=== PATIENT | female | born 1990 | race Hispanic/Latino ===

== ENCOUNTER 2018-06-21 21:02 | Emergency (ER) | payer MEDICAID ==
[2018-06-21 22:03] LABS: BASOPHILS % (AUTO) 0.1 % (0.0-5.0); EOSINOPHILS % (AUTO) 0.6 % (0.0-8.0); HEMATOCRIT 32.8 % (36-48); LYMPHOCYTES % (AUTO) 28.6 % (21.0-51.0); MEAN CORPUSCULAR HEMOGLOBIN 23.7 pg (27.0-33.0); MEAN CORPUSCULAR HGB CONC 32.2 g/dL (32.0-36.0); MEAN CORPUSCULAR VOLUME 73.7 fL (79-99); MONOCYTES % (AUTO) 4.9 % (3.0-13.0); NEUTROPHILS % (AUTO) 65.8 % (40.0-77.0); PLATELET COUNT (AUTO) 286 K/uL (130-400); RED BLOOD CELL COUNT(AUTO) 4.44 MIL/uL (4.00-5.50); RED CELL DISTRIBUTION WIDTH 18.6 % (11.0-15.5); WHITE BLOOD COUNT (AUTO) 10.7 K/uL (4.8-10.8)
[2018-06-21 22:04] LABS: APPEARANCE,URINE Cloudy (CLEAR); BILIRUBIN,URINE Negative (NEGATIVE); COLOR,URINE Dark Yellow (YELLOW); GLUCOSE, URINE (UA) Negative (NEGATIVE); KETONES,URINE Trace mg/dL (NEGATIVE); LEUKOCYTE ESTERASE ,URINE Trace (NEGATIVE); NITRATE,URINE Negative (NEGATIVE); OCCULT BLOOD,URINE Large (NEGATIVE); PH,URINE 5.5 (5.0-8.0); PROTEIN,URINE POS 1+ (NEGATIVE)
[2018-06-21 22:14] LABS: CREATININE 0.6 mg/dL (0.5-1.5); POTASSIUM 3.4 mmol/L (3.5-5.1)
[2018-06-21 22:17] LABS: INR 0.93 (0.85-1.15); PARTIAL THROMBOPLASTIN TIME 31.3 SEC (26.3-35.5); PROTHROMBIN TIME 9.8 SEC (9.6-11.6)
[2018-06-21] MEDS ORDERED: ACETAMINOPHEN EXTRA STRENGTH 500 MG TABLET ONE (22:36)
[2018-06-21 22:38] LABS: ALBUMIN 3.4 g/dL (3.5-5.0); BILIRUBIN,TOTAL 0.1 mg/dL (0.2-1.0); TOTAL PROTEIN, SERUM 7.7 g/dL (6.0-8.3)
[2018-06-21 22:42] LABS: BACTERIA,URINE None Seen /HPF (None Seen); MUCUS,URINE None Seen LPF (None Seen); RBC,URINE TNTC /HPF (0-1); SQUAMOUS EPITHELIAL CELL,UR None Seen /HPF (0-2); WBC,URINE 0-1 /HPF (0-1)
== END 2018-06-21 23:14 | disposition home or self-care (01) ==
LOC: EDH 21:02
DX: O20.0 Threatened abortion (principal); Z98.890 Other specified postprocedural states; Z79.899 Other long term (current) drug therapy; Z3A.08 8 weeks gestation of pregnancy
CPT/HCPCS: 36415; 76801; 80053; 81001; 84702; 85025; 85610; 85730

== ENCOUNTER 2019-07-11 19:13 | Emergency (ER) | payer MEDICAID, OTHER ==
[2019-07-11] MEDS ORDERED: ACETAMINOPHEN 325 MG TAB ONE (19:22)
== END 2019-07-11 20:31 | disposition home or self-care (01) ==
LOC: EDH 19:13
DX: S02.2XXA Fracture of nasal bones, initial encounter for closed fracture (principal); Z98.890 Other specified postprocedural states; Y04.0XXA Assault by unarmed brawl or fight, initial encounter; Y93.89 Activity, other specified; Y92.89 Other specified places as the place of occurrence of the external cause; Y99.8 Other external cause status
CPT/HCPCS: 70160

== ENCOUNTER 2019-12-19 09:59 | Emergency (ER) | payer OTHER ==
[2019-12-19 10:41] LABS: APPEARANCE,URINE Clear (CLEAR); BILIRUBIN,URINE Negative (NEGATIVE); COLOR,URINE Yellow (YELLOW); GLUCOSE, URINE (UA) Negative (NEGATIVE); HCG,QUAL RESULT POSITIVE (NEGATIVE); KETONES,URINE Negative (NEGATIVE); LEUKOCYTE ESTERASE ,URINE Trace (NEGATIVE); NITRATE,URINE Negative (NEGATIVE); OCCULT BLOOD,URINE Large (NEGATIVE); PH,URINE 6.5 (5.0-8.0); PROTEIN,URINE Trace mg/dL (NEGATIVE)
[2019-12-19 10:49] LABS: AMPHET/METH SCREEN,URINE NEGATIVE (NEGATIVE); BARBITURATE SCREEN, URINE NEGATIVE (NEGATIVE); BENZODIAZEPINES SCREEN,URINE NEGATIVE (NEGATIVE); CANNABINOID SCREEN,URINE NEGATIVE (NEGATIVE); COCAINE SCREEN,URINE NEGATIVE (NEGATIVE); OPIATE SCREEN,URINE NEGATIVE (NEGATIVE); PHENCYCLIDINE SCREEN,URINE NEGATIVE (NEGATIVE)
[2019-12-19 10:59] LABS: BASOPHILS % (AUTO) 0.1 % (0.0-5.0); EOSINOPHILS % (AUTO) 0.8 % (0.0-8.0); HEMATOCRIT 34.3 % (36-48); LYMPHOCYTES % (AUTO) 25.6 % (21.0-51.0); MEAN CORPUSCULAR HEMOGLOBIN 22.5 pg (27.0-33.0); MEAN CORPUSCULAR HGB CONC 30.3 g/dL (32.0-36.0); MEAN CORPUSCULAR VOLUME 74.2 fL (79-99); NEUTROPHILS % (AUTO) 68.9 % (40.0-77.0); PLATELET COUNT (AUTO) 317 K/uL (130-400); RED BLOOD CELL COUNT(AUTO) 4.62 MIL/uL (4.00-5.50); RED CELL DISTRIBUTION WIDTH 17.7 % (11.0-15.5); WHITE BLOOD COUNT (AUTO) 10.1 K/uL (4.8-10.8)
[2019-12-19 11:07] LABS: BACTERIA,URINE Few /HPF (None Seen); SQUAMOUS EPITHELIAL CELL,UR Few /HPF (0-2)
[2019-12-19 11:09] LABS: CARBON DIOXIDE 27 mmol/L (21-32); CHLORIDE 105 mmol/L (101-111); CREATININE 0.7 mg/dL (0.5-1.5); GLOMERULAR FILTR. RATE CALC 106 mL/min (>60); GLUCOSE,RANDOM 125 mg/dL (70-105); POTASSIUM 3.7 mmol/L (3.5-5.1); SODIUM SERUM 140 mmol/L (136-145); UREA NITROGEN, BLOOD 9 mg/dL (7-18)
[2019-12-19 11:20] LABS: ALANINE AMINOTRANSFERASE 14 U/L (12-78); ALBUMIN 3.2 g/dL (3.5-5.0); ASPARTATE AMINOTRANSFERASE 14 U/L (10-37); BILIRUBIN,DIRECT < 0.1 mg/dL (0.0-0.3); BILIRUBIN,TOTAL 0.2 mg/dL (0.2-1.0); HCG,QUANTITATIVE 223 mIU/mL (0-5); TOTAL PROTEIN, SERUM 7.5 g/dL (6.0-8.3)
== END 2019-12-19 13:16 | disposition home or self-care (01) ==
LOC: EDH 09:59
DX: O03.4 Incomplete spontaneous abortion without complication (principal); Z98.890 Other specified postprocedural states; Z3A.01 Less than 8 weeks gestation of pregnancy
CPT/HCPCS: 36415; 76801; 80048; 80076; 80305; 81001; 81025; 84702; 85025; 86850; 86900; 86901

== ENCOUNTER 2020-01-04 16:20 | Emergency (ER) | payer OTHER ==
[2020-01-04] MEDS ORDERED: ACETAMINOPHEN EXTRA STRENGTH 500 MG TABLET ONE (17:41)
== END 2020-01-04 19:33 | disposition home or self-care (01) ==
LOC: EDH 16:20
DX: O20.0 Threatened abortion (principal); Z98.890 Other specified postprocedural states; Z79.899 Other long term (current) drug therapy; Z3A.01 Less than 8 weeks gestation of pregnancy

== ENCOUNTER 2020-12-28 22:47 | Emergency (ER) | payer OTHER, MEDICAID ==
[2020-12-28 23:18] LABS: BASOPHILS % (AUTO) 0.2 % (0.0-5.0); EOSINOPHILS % (AUTO) 0.7 % (0.0-8.0); LYMPHOCYTES % (AUTO) 28.1 % (21.0-51.0); MEAN CORPUSCULAR HEMOGLOBIN 21.5 pg (27.0-33.0); MEAN CORPUSCULAR HGB CONC 29.4 g/dL (32.0-36.0); MEAN CORPUSCULAR VOLUME 72.9 fL (79-99); MONOCYTES % (AUTO) 3.8 % (3.0-13.0); NEUTROPHILS % (AUTO) 66.9 % (40.0-77.0); PLATELET COUNT (AUTO) 380 K/uL (130-400); RED CELL DISTRIBUTION WIDTH 17.9 % (11.0-15.5); WHITE BLOOD COUNT (AUTO) 12.8 K/uL (4.8-10.8)
[2020-12-28 23:31] LABS: APPEARANCE,URINE Cloudy (CLEAR); BILIRUBIN,URINE Negative (NEGATIVE); GLUCOSE, URINE (UA) Negative (NEGATIVE); KETONES,URINE Negative (NEGATIVE); LEUKOCYTE ESTERASE ,URINE Small (NEGATIVE); NITRATE,URINE Negative (NEGATIVE); OCCULT BLOOD,URINE Large (NEGATIVE); PH,URINE 5.5 (5.0-8.0); PROTEIN,URINE POS 2+ mg/dL (NEGATIVE)
[2020-12-28 23:36] LABS: COLOR,URINE PINK (YELLOW)
[2020-12-28 23:37] LABS: BACTERIA,URINE Few /HPF (None Seen); MUCUS,URINE Few LPF (None Seen); RBC,URINE >100 /HPF (0-1)
[2020-12-28 23:40] LABS: CREATININE 0.7 mg/dL (0.5-1.5); POTASSIUM 3.8 mmol/L (3.5-5.1)
[2020-12-29] MEDS ORDERED: ONDANSETRON HCL 4 MG/2 ML VIAL ONE (00:38)
[2020-12-29] MEDS ORDERED: PROCHLORPERAZINE EDISYLATE 10 MG/2 ML VIAL ONE (00:39)
== END 2020-12-29 01:15 | disposition home or self-care (01) ==
LOC: EDH 22:47
DX: O03.4 Incomplete spontaneous abortion without complication (principal); Z3A.01 Less than 8 weeks gestation of pregnancy
CPT/HCPCS: 36415; 80048; 81001; 84702; 85025; 86850; 86900; 86901; 87088; 96374; 96375; 99284; J0780; J2405

== ENCOUNTER 2022-10-06 20:48 | Observation (INO) | payer OTHER, MEDICAID ==
[~2022-10-06] VITALS: Ht 149.9 cm; Wt 92.1 kg
[2022-10-06 20:54] VITALS: BP 138/65
[2022-10-06] MEDS ORDERED: CEFTRIAXONE 1G VIAL IVP ONE (21:30)
[2022-10-06] MEDS ORDERED: LACTATED RINGERS 1000ML IV SCH (21:30)
[2022-10-06 21:33] LABS: APPEARANCE,URINE CLOUDY (CLEAR); BILIRUBIN,URINE NEGATIVE (NEGATIVE); COLOR,URINE YELLOW (YELLOW); GLUCOSE, URINE (UA) NEGATIVE (NEGATIVE); KETONES,URINE NEGATIVE (NEGATIVE); LEUKOCYTE ESTERASE ,URINE 75 Leu/uL (NEGATIVE); NITRATE,URINE 1+ (NEGATIVE); PH,URINE 5.5 (5.0-8.0); PROTEIN,URINE 20 mg/dL (NEGATIVE); UROBILINOGEN,URINE 0.2 mg/dL (0.2-1.0)
[2022-10-06 21:39] LABS: BACTERIA,URINE FEW /HPF (None Seen); MUCUS,URINE RARE LPF (None Seen); SQUAMOUS EPITHELIAL CELL,UR MOD /HPF (0-2); YEAST,URINE BUDDING FEW /HPF (None Seen)
== END 2022-10-06 23:00 | disposition home or self-care (01) ==
LOC: EDH 20:48 → LDH 20:49
PROVIDERS: ADMIT Obstetrics & Gynecology; ATTEND Obstetrics & Gynecology
DX: O23.42 Unspecified infection of urinary tract in pregnancy, second trimester (principal); O21.2 Late vomiting of pregnancy; O26.892 Other specified pregnancy related conditions, second trimester; R42 Dizziness and giddiness; R68.2 Dry mouth, unspecified; Z3A.24 24 weeks gestation of pregnancy; Z98.891 History of uterine scar from previous surgery
CPT/HCPCS: 96374; 96361; 59025; 87088; 81001; G0378 ×2; G0379; J0696; 96360

== ENCOUNTER 2022-12-04 12:01 | Observation (INO) | payer OTHER, MEDICAID ==
[~2022-12-04] VITALS: Ht 149.9 cm; Wt 96.2 kg
[2022-12-04 12:31] VITALS: BP 112/49
[2022-12-04 13:18] LABS: APPEARANCE,URINE CLOUDY (CLEAR); BILIRUBIN,URINE NEGATIVE (NEGATIVE); COLOR,URINE YELLOW (YELLOW); GLUCOSE, URINE (UA) NEGATIVE (NEGATIVE); KETONES,URINE NEGATIVE (NEGATIVE); LEUKOCYTE ESTERASE ,URINE NEGATIVE Leu/uL (NEGATIVE); NITRATE,URINE NEGATIVE (NEGATIVE); OCCULT BLOOD,URINE NEGATIVE (NEGATIVE); PROTEIN,URINE 20 mg/dL (NEGATIVE); UROBILINOGEN,URINE 0.2 mg/dL (0.2-1.0)
[2022-12-04 14:10] LABS: BACTERIA,URINE RARE /HPF (None Seen); MUCUS,URINE RARE LPF (None Seen); RBC,URINE 0-1 /HPF (0-1); SQUAMOUS EPITHELIAL CELL,UR MANY /HPF (0-2)
== END 2022-12-04 16:30 | disposition home or self-care (01) ==
LOC: EDH 12:01 → LDH 12:02 → EDH 12:37
PROVIDERS: ADMIT Obstetrics & Gynecology; ATTEND Obstetrics & Gynecology
DX: O99.891 Other specified diseases and conditions complicating pregnancy (principal); M54.9 Dorsalgia, unspecified; O26.893 Other specified pregnancy related conditions, third trimester; R10.9 Unspecified abdominal pain; Z3A.33 33 weeks gestation of pregnancy
CPT/HCPCS: 59025 ×2; 81001; 76819; G0378 ×4

== ENCOUNTER 2022-12-07 08:32 | Inpatient (IN) | payer OTHER, MEDICAID ==
[~2022-12-07] VITALS: Ht 149.9 cm; Wt 95.7 kg
[2022-12-07] MEDS ORDERED: ACETAMINOPHEN 325 MG TAB PO PRN (10:30)
[2022-12-07 10:36] VITALS: BP 102/58
[2022-12-07] MEDS ORDERED: ONDANSETRON 4MG INJ IVP PRN (11:00)
[2022-12-07] MEDS: LACTATED RINGERS 1000ML 1,000 ML IV PRN ×4 (11:23→22:16)
[2022-12-07] MEDS: PANTOPRAZOLE 40 MG/VIAL IVP SCH (11:49)
[2022-12-07] MEDS: PRENATAL VITAMIN RX TABLET PO SCH (11:49)
[2022-12-07 16:03] VITALS: BP 117/65
[2022-12-07 19:46] VITALS: BP 109/65
[2022-12-08 00:01] VITALS: BP 115/62
[2022-12-08] MEDS: LACTATED RINGERS 1000ML 1,000 ML IV PRN ×3 (03:03→15:36)
[2022-12-08 04:28] VITALS: BP 100/56
[2022-12-08 07:40] VITALS: BP 105/54
[2022-12-08] MEDS: PANTOPRAZOLE 40 MG/VIAL IVP SCH (08:28)
[2022-12-08] MEDS: PRENATAL VITAMIN RX TABLET PO SCH (08:28)
[2022-12-08 11:45] VITALS: BP 98/52
[2022-12-08 15:35] VITALS: BP 110/56
[2022-12-08 19:45] VITALS: BP 112/67
[2022-12-09 00:09] VITALS: BP 106/60
[2022-12-09] MEDS: LACTATED RINGERS 1000ML 1,000 ML IV PRN ×2 (00:09→08:41)
[2022-12-09 03:56] VITALS: BP 115/56
[2022-12-09 07:53] VITALS: BP 114/63
[2022-12-09] MEDS: PRENATAL VITAMIN RX TABLET PO SCH (08:33)
[2022-12-09] MEDS: PANTOPRAZOLE 40 MG/VIAL IVP SCH (08:34)
== END 2022-12-09 10:20 | disposition home or self-care (01) | DRG 833 ==
LOC: EDH 08:32 → LDH 08:33 → OBSVTOIN 08:33 → WSH 18:00
PROVIDERS: ADMIT Obstetrics & Gynecology; ATTEND Obstetrics & Gynecology
DX: O41.03X0 Oligohydramnios, third trimester, not applicable or unspecified (principal); Z3A.34 34 weeks gestation of pregnancy
CPT/HCPCS: 59025; 76815; C9113; G0378; J7120

== ENCOUNTER 2022-12-26 14:14 | Observation (INO) | payer OTHER, MEDICAID ==
[~2022-12-26] VITALS: Ht 149.9 cm; Wt 99.3 kg
[2022-12-26] MEDS ORDERED: LACTATED RINGERS 1000ML 1,000 ML IV PRN (14:30)
[2022-12-26 14:44] LABS: APPEARANCE,URINE CLOUDY (CLEAR); BILIRUBIN,URINE NEGATIVE (NEGATIVE); COLOR,URINE LIGHT-YELLOW (YELLOW); GLUCOSE, URINE (UA) NEGATIVE (NEGATIVE); KETONES,URINE NEGATIVE (NEGATIVE); LEUKOCYTE ESTERASE ,URINE NEGATIVE Leu/uL (NEGATIVE); NITRATE,URINE NEGATIVE (NEGATIVE); OCCULT BLOOD,URINE NEGATIVE (NEGATIVE); PROTEIN,URINE NEGATIVE (NEGATIVE); UROBILINOGEN,URINE 0.2 mg/dL (0.2-1.0)
[2022-12-26 15:02] LABS: MUCUS,URINE RARE LPF (None Seen); SQUAMOUS EPITHELIAL CELL,UR MANY /HPF (0-2)
[2022-12-26 16:06] VITALS: BP 111/56
== END 2022-12-26 17:10 | disposition home or self-care (01) ==
LOC: LDH 14:14
PROVIDERS: ADMIT Obstetrics & Gynecology; ATTEND Obstetrics & Gynecology
DX: O36.8130 Decreased fetal movements, third trimester, not applicable or unspecified (principal); Z3A.36 36 weeks gestation of pregnancy
CPT/HCPCS: 96361; 59025; 96360; 81001; 76819; G0378 ×3; G0379; J7120

== ENCOUNTER 2022-12-28 11:44 | Observation (INO) | payer OTHER, MEDICAID ==
[~2022-12-28] VITALS: Ht 149.9 cm; Wt 96.2 kg
[2022-12-28 11:45] VITALS: BP 132/74
[2022-12-28 12:52] LABS: APPEARANCE,URINE CLOUDY (CLEAR); BILIRUBIN,URINE NEGATIVE (NEGATIVE); COLOR,URINE YELLOW (YELLOW); GLUCOSE, URINE (UA) NEGATIVE (NEGATIVE); KETONES,URINE 40 mg/dL (NEGATIVE); LEUKOCYTE ESTERASE ,URINE 250 Leu/uL (NEGATIVE); NITRATE,URINE NEGATIVE (NEGATIVE); OCCULT BLOOD,URINE NEGATIVE (NEGATIVE); PH,URINE 6.5 (5.0-8.0); PROTEIN,URINE 30 mg/dL (NEGATIVE); UROBILINOGEN,URINE 0.2 mg/dL (0.2-1.0)
[2022-12-28] MEDS ORDERED: ONDANSETRON 4MG INJ IVP ONE (13:00)
[2022-12-28] MEDS ORDERED: LORATADINE 10 MG TABLET PO SCH (13:00)
[2022-12-28] MEDS ORDERED: LACTATED RINGERS 1000ML IV SCH (13:00)
[2022-12-28] MEDS ORDERED: GUAIFENESIN-DM 200/20 MG 10 ML PO ONE (13:00)
[2022-12-28 13:05] LABS: AMPHET/METH SCREEN,URINE NEGATIVE (NEGATIVE); BARBITURATE SCREEN, URINE NEGATIVE (NEGATIVE); BENZODIAZEPINES SCREEN,URINE NEGATIVE (NEGATIVE); CANNABINOID SCREEN,URINE NEGATIVE (NEGATIVE); COCAINE SCREEN,URINE NEGATIVE (NEGATIVE); OPIATE SCREEN,URINE NEGATIVE (NEGATIVE); PHENCYCLIDINE SCREEN,URINE NEGATIVE (NEGATIVE)
[2022-12-28 13:16] LABS: BACTERIA,URINE RARE /HPF (None Seen); MUCUS,URINE RARE LPF (None Seen); SQUAMOUS EPITHELIAL CELL,UR MANY /HPF (0-2)
[2022-12-28] MEDS ORDERED: AZITHROMYCIN 500MG+NS 250ML IVPB SCH (14:00)
== END 2022-12-28 16:00 | disposition home or self-care (01) ==
LOC: EDH 11:44 → LDH 11:45
PROVIDERS: ADMIT Obstetrics & Gynecology; ATTEND Obstetrics & Gynecology
DX: O98.53 Other viral diseases complicating the puerperium (principal); U07.1 COVID-19; O26.893 Other specified pregnancy related conditions, third trimester; R11.0 Nausea; Z3A.36 36 weeks gestation of pregnancy; Z98.891 History of uterine scar from previous surgery; Z79.899 Other long term (current) drug therapy
CPT/HCPCS: 96361; 96365; 96375; 59025; 80305; 87088; 81001; G0378 ×4; G0379; J7120 ×2; J2405; J0456; 96360

== ENCOUNTER 2023-02-10 13:55 | Emergency (ER) | payer OTHER, MEDICAID | END 2023-02-10 15:21 | disposition left against medical advice (07) | LOC: EDH 13:55 | DX: M54.9 Dorsalgia, unspecified (principal); Z98.890 Other specified postprocedural states | CPT/HCPCS: 99281 ==